=== PATIENT | female | born 1975 | race Caucasian/White ===

== ENCOUNTER 2016-09-22 18:01 | Inpatient (IN) | payer BC ==
[~2016-09-22] VITALS: Ht 167.6 cm; Wt 83.5 kg
[~2016-09-22 18:01] MED LIST: MULT-506 PO
[2016-09-22] MEDS ORDERED: PENICILLIN G POTASSIUM IV 6 MU in DEXTROSE 5% 250ML 250 ML IV ONE (18:30)
[2016-09-22] MEDS ORDERED: LACTATED RINGER'S 1000ML 1,000 ML IV PRN (18:30)
[2016-09-22] MEDS ORDERED: LACTATED RINGER'S 1000ML 500 ML IV PRN (18:32)
[2016-09-22] MEDS ORDERED: OXYTOCIN 30 UNITS/500ML NSS IV PRN (18:45)
[2016-09-22 18:53] LABS: HEMATOCRIT 36.4 % (37-47); MEAN CELL VOLUME 88.8 fL (80-100); MEAN CORPUSCULAR HEMOGLOBIN 33.2 pg (25-34); MEAN CORPUSCULAR HGB CONC 37.4 g/dl (32-36); PLATELET COUNT 174 K/uL (130-400); WHITE BLOOD COUNT 12.07 K/uL (4.8-10.8)
[2016-09-22] MEDS: LACTATED RINGER'S 1000ML 1,000 ML IV SCH (19:06)
[2016-09-22] MEDS ORDERED: LEVO112T2 PO (19:26)
[2016-09-22] MEDS ORDERED: CHOL1000 PO (19:26)
[2016-09-22] MEDS ORDERED: CHOL2000 PO (19:26)
[2016-09-22] MEDS ORDERED: CHOL20007 PO (19:26)
[2016-09-22] MEDS ORDERED: LEVO25TA PO (19:26)
[2016-09-22 19:28] VITALS: Ht 167.6 cm; Wt 83.5 kg
[2016-09-22] MEDS ORDERED: OMEG12006 (19:28)
[2016-09-22] MEDS: PENICILLIN G POTASSIUM IV 3 MU in DEXTROSE 5% 100ML 100 ML IV PRN (22:55)
--- NOTE | 2016-09-22 23:38 | HISTORY & PHYSICAL EXAMINATION ---
DATE OF ADMISSION: 09/22/2016 CHIEF COMPLAINT: Prolonged rupture of membranes and failed home delivery. HISTORY OF PRESENT ILLNESS: The patient is a 41-year-old 2, para 1, at 40 weeks and 1 day gestation, who was brought in to labor and delivery by her call center assistant. The patient states that she ruptured at 1:00 a.m. on the morning of 09/22/2016 with clear amniotic fluid. She has been irregularly edgar throughout the day. She is GBS positive and therefore is one of the reasons she presented to labor and delivery, for antibiotics and also for labor augmentation with Pitocin. On arrival, she was found to be 1 cm, 40% effaced and -2 station. Her care has been uncomplicated. She has a history of a prior section in 2014, secondary to intolerance to labor. She made it to 5 cm at the time of her delivery. The baby weighed 7 pounds 14 ounces. She is requesting a trial of labor after section. She understands the risks and benefits of a . PAST MEDICAL HISTORY: Hypothyroidism. Her first was through IVF; this was natural. PAST SURGICAL HISTORY: She had one section in 2014. She had appendectomy and a tonsillectomy. MEDICATIONS: vitamins, Synthroid 137 mcg daily, probiotics and vitamin D. SOCIAL HISTORY: She denies tobacco, alcohol or drug use. ALLERGIES: No known drug allergies. LABS: Blood type is O positive, group B strep positive, rubella immune, hepatitis B surface antigen negative, RPR nonreactive. PHYSICAL EXAMINATION: VITAL SIGNS: Blood pressure is 139/82, heart rate of 93, respiration rate of 20, temperature of 98.2. GENERAL: The patient is awake, alert, oriented x3. She is in no acute distress. HEART: With regular rate and rhythm. LUNGS: Clear to auscultation bilaterally. ABDOMEN: Gravid uterus, appropriate for gestational age. Bowel sounds present x4. Estimated weight 7-8 pounds. EXTREMITIES: No clubbing, cyanosis or calf tenderness. VAGINAL EXAM: She is 1 cm, 40% effaced, -2 station, posterior. heart tones are category 1. ASSESSMENT AND PLAN: A 41-year-old 2, para 1, at 40 weeks and 1 day gestation, will be admitted to labor and delivery for labor augmentation, secondary to failed home delivery. She is GBS positive. Will begin penicillin for GBS prophylaxis and oxytocin per protocol. She understands the risks and benefits of a trial of labor after a section. She may have her epidural upon request. OLAMIDE
[2016-09-22] MEDS ORDERED: FENTANYL 2MCG/ML ROPIV 1.25MG/ML 100ML BAG EPI ONE (23:46)
[2016-09-22] MEDS ORDERED: BUPIVACAINE 0.25% 30 ML VIAL ONE (23:46)
[2016-09-22] MEDS ORDERED: EpHEDrine SULFATE INJ 50 MG/ML AMP ONE (23:46)
[2016-09-22] MEDS ORDERED: FENTANYL CITRATE INJ 50 MCG/1 ML 2 ML VIAL ONE (23:47)
[2016-09-23] MEDS ORDERED: NALOXONE HCL INJ 1 MG in SODIUM CHLORIDE 0.9% 1000ML 1,000 ML IV PRN ×4 (00:40)
[2016-09-23] MEDS ORDERED: LACTATED RINGER'S 1000ML 500 ML IV PRN (00:40)
[2016-09-23] MEDS ORDERED: DiphenhydrAMINE HCL 50 MG/ML VIAL IV PRN (00:45)
[2016-09-23] MEDS ORDERED: ONDANSETRON INJ 2 MG/ML 2 ML VIAL IV PRN (00:45)
[2016-09-23] MEDS ORDERED: NALBUPHINE HCL INJ 10 MG/ML AMP IV PRN (00:45)
[2016-09-23] MEDS ORDERED: EpHEDrine SULFATE INJ 50 MG/ML AMP IV PRN (00:45)
[2016-09-23] MEDS ORDERED: NALOXONE HCL INJ 0.4 MG/1 ML VIAL/CARP IV PRN (00:45)
[2016-09-23] MEDS ORDERED: PROMETHAZINE HCL INJ 25 MG in SODIUM CHLORIDE 0.9% 50ML 50 ML IV PRN (00:45)
[2016-09-23] MEDS: PENICILLIN G POTASSIUM IV 3 MU in DEXTROSE 5% 100ML 100 ML IV PRN ×2 (02:44→06:59)
[2016-09-23] MEDS: LACTATED RINGER'S 1000ML 1,000 ML IV SCH (05:56)
[2016-09-23] MEDS: FENTANYL 2MCG/ML ROPIV 1.25MG/ML 100ML BAG EPI PRN ×2 (06:59→08:37)
[2016-09-23] MEDS ORDERED: METHYLERGONOVINE MALEATE 0.2 MG/ML AMP ONE (11:26)
[2016-09-23] MEDS ORDERED: OXYCODONE/ACETAMINOPHEN 5-325 TAB PO PRN (11:45)
[2016-09-23] MEDS ORDERED: HYDROCORTISONE ACETATE 25 MG SUPP PR PRN (11:45)
[2016-09-23] MEDS ORDERED: METHYLERGONOVINE MALEATE 0.2 MG/ML AMP IM ONE (11:45)
[2016-09-23] MEDS ORDERED: SUPERCREAM 0.870 % 15GM JAR EXT PRN (11:45)
[2016-09-23] MEDS ORDERED: BENZOCAINE 20% AER SPR 82.5 GM CAN EXT PRN (11:45)
[2016-09-23] MEDS ORDERED: ACETAMINOPHEN 325 MG TAB PO PRN (11:45)
[2016-09-23] MEDS ORDERED: ACETAMINOPHEN/CODEINE 300/30MG TAB PO PRN ×2 (11:45)
[2016-09-23] MEDS ORDERED: LANOLIN OINT EXT PRN ×2 (11:45)
[2016-09-23] MEDS ORDERED: OXYTOCIN 30 UNITS/500ML NSS IV PRN (11:45)
--- NOTE | 2016-09-23 11:58 | Anesthesia Procedure Note ---
Anesthesia Epidural Removal Nt Date & Time Sep 23, 2016 at 11:58 Vital Signs Pain Intensity: 0.0 Notes Mental Status: alert / awake / arousable, participated in evaluation Nausea / Vomiting: adequately controlled Pain: adequately controlled Airway Patency, RR, SpO2: stable & adequate BP & HR: stable & adequate Hydration State: stable & adequate Neuraxial Anesthesia: was administered Anesthetic Complications: no major complications apparent, pt satisfied with anesthetic care Epidural: removed without complications, with tip intact
[2016-09-23] MEDS: IBUPROFEN 600 MG TAB PO PRN ×2 (12:09→18:30)
--- NOTE | 2016-09-23 13:27 | DELIVERY SUMMARY ---
DATE OF OPERATION: 09/23/2016 DELIVERY NOTE The patient delivered a live male in occiput anterior presentation. was delivered and placed on mother's abdomen. Delayed cord clamp was performed. Weight is pending, Apgars 8 and 9. Placenta was spontaneously delivered. Inspection of the placenta shows a 3-vessel cord. The patient wishes to take placenta home. Estimated blood loss is 500 mL. Inspection of the perineum showed a second-degree midline laceration which was repaired in layers with 2-0 Vicryl. Rectal exam post repair showed good sphincter tone and no sutures palpated in the rectum. All instruments were removed from the vagina and accounted for x2 including sponges, needles and retractors. Baby and mother are doing well in recovery. I attest to the content of the Intraoperative Record and any orders documented therein. Any exception s are noted below.
[2016-09-23 14:00] VITALS: BP 122/81; PULSE 82; TEMP 36.7; O2SAT 98
[2016-09-23 19:45] VITALS: BP 115/74; PULSE 75; TEMP 36.3; O2SAT 99
[2016-09-23] MEDS: DOCUSATE SODIUM 100 MG CAP PO SCH (19:48)
[2016-09-23 23:30] VITALS: BP 112/67; PULSE 75; TEMP 36.7; O2SAT 98
[2016-09-24] MEDS: IBUPROFEN 600 MG TAB PO PRN ×4 (00:58→18:08)
[2016-09-24 04:20] VITALS: BP 111/58; PULSE 74; TEMP 36.5; O2SAT 96
[2016-09-24 07:35] VITALS: BP 123/79; PULSE 66; TEMP 36.4; O2SAT 99
[2016-09-24] MEDS: LEVOTHYROXINE 137 MCG TAB PO SCH (07:41)
[2016-09-24] MEDS: FERROUS SULFATE 325 MG TAB PO SCH (08:28)
[2016-09-24] MEDS: DOCUSATE SODIUM 100 MG CAP PO SCH ×2 (08:29→19:51)
[2016-09-24] MEDS: PRENATAL VITAMIN TAB PO SCH (08:29)
--- NOTE | 2016-09-24 10:23 | OB/GYN Progress Note ---
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 Patient is seen and examined. She feels well, no complaints other than soreness and hemorrhoids Ambulating without dizziness Voiding without difficulty Tolerating regular diet with out N&V Bleeding is minimal No fever/ chills/ CP/ SOB/ N&V/ Leg pain Breast feeding without problems Date Time Temp Pulse Resp B/P (MAP) Pulse Ox O2 Delivery O2 Flow Rate FiO2 09/24/16 07:40 Room Air 09/24/16 07:35 36.4 66 16 123/79 (94) 99 Room Air 09/24/16 04:20 36.5 74 16 111/58 (75) 96 Room Air 09/23/16 23:30 Room Air 09/23/16 23:30 36.7 75 18 112/67 (82) 98 Room Air 09/23/16 19:45 36.3 75 18 115/74 (88) 99 Room Air 09/23/16 14:00 98 Room Air 09/23/16 14:00 36.7 82 18 122/81 (95) 98 Room Air Test 09/22/16 18:45 White Blood Count 12.07 H Red Blood Count 4.10 L Hemoglobin 13.6 Hematocrit 36.4 L Mean Corpuscular Volume 88.8 Mean Corpuscular Hemoglobin 33.2 Mean Corpuscular Hemoglobin Concent 37.4 H RDW Standard Deviation 47.2 H RDW Coefficient of Variation 14.6 H Platelet Count 174 Mean Platelet Volume 13.0 H PE: General: Alert, orientedx3, NAD Abd: soft, NT, fundus firm, below Umbilicus Perineum intact, Lochia rubra minimal Ext hemorrhoids+, no signs of thrombosis Ext; NT, no edema AP: 41 yo s/p / , ppd# 1 VSS Afebrile doing well Continue routine care All questions were answered Discussed hemorrhoids and how to take care D/C home tomorrow
[2016-09-24 17:00] VITALS: BP 137/79; PULSE 76; TEMP 36.7
[2016-09-24] MEDS ORDERED: BISACODYL 5 MG TABEC PO SCH (20:00)
[2016-09-24 23:25] VITALS: BP 137/77; PULSE 83; TEMP 36.8; O2SAT 99
[2016-09-25] MEDS ORDERED: BISACODYL 10 MG SUPP PR PRN (07:00)
[2016-09-25] MEDS: LEVOTHYROXINE 137 MCG TAB PO SCH (07:26)
[2016-09-25 08:15] VITALS: BP 120/70; PULSE 74; TEMP 36.7; O2SAT 100
[2016-09-25] MEDS ORDERED: MTR600X PO (08:31)
--- NOTE | 2016-09-25 08:32 | Discharge Instructions ---
Discharge Instructions Date of Service Sep 25, 2016. Admission Reason for Admission: Failed Home , Ruptured Membranes Discharge Discharge Diagnosis / Problem: Vaginal after section Discharge Goals Goal(s): Routine recovery after delivery Medications Continue Dispensed Medications: supercream, dermaplast, tucks, lansinoh Activity Recommendations Activity Limitations: per Instructions/Follow-up section . Instructions / Follow-Up Instructions / Follow-Up ACTIVITY RECOMMENDATIONS: * Gradual return to full activity over the next 2-3 weeks. * No lifting - nothing heavier than baby over the next 2-3 weeks. * Do not engage in vigorous exercise, sexual activity or sports until cleared by your physician. * Do not drive or operate any motorized equipment until cleared by your physician. * You may shower/bathe daily. BREAST CARE: If you are not breast feeding: * Wear a supportive bra 24 hours a day for one to two weeks. * Avoid stimulating your breasts and nipples as much as possible during the first few weeks after delivery. * When taking a shower, have the warm water hit your back, not breasts. * When your breasts feel full, apply ice packs. Usually three to four times a day helps ease the discomfort. * Take a mild pain medication (Tylenol/Motrin) when you are uncomfortable. If breast feeding: * Use breast milk to lubricate nipples. Lansinoh cream may be used for sore nipples. You do not need to remove cream prior to breast feeding. If using a different brand of cream, check the label for directions regarding removal of cream prior to nursing. * Wear a supportive bra. * If having problems with breasts or breast feeding, call a new vehicle sales consultant or your health care provider. EPISIOTOMY CARE: After delivery, if you have an episiotomy (stitches), the following steps will ease discomfort and aid healing. * For the first 24 hours after delivery, place ice packs next to your episiotomy to help reduce swelling. * After the first 24 hour-period, sitz baths, either portable or in the tub, are suggested. A shower with a shower arm sprayed over the episiotomy may be comforting. * Josi care should be done after each voiding and bowel movement. Squirt warm water from a plastic bottle over the perineum (region of the body between the anus and urinary opening) and pat dry. * Use Dermoplast to ease discomfort. Shake container. [place] directly over the episiotomy. * Place a Tucks on a clean sanitary pad next to your episiotomy. OVER THE COUNTER MEDICATION: * For discomfort or pain, you may use Acetaminophen (Tylenol), Ibuprofen (Advil ), or Naproxen (Aleve) following the package directions. * For constipation you may use Colace following the package directions. SPECIAL CARE INSTRUCTIONS: When you are discharged from the hospital, it is important for you to follow the instructions listed below: * During the first week at home, you should be able to care for yourself and your baby. In addition, the usual light household activities are encouraged. * Limit your activities to the way you feel. Do not try to clean the house or move furniture. Be sensible. * If you actively engage in sports and have done so up until the time of your delivery, you may resume these activities as soon as you feel able. This may take up to one month or even longer. Use good judgment. * Continue to take your vitamins for at least six weeks after the of your baby. * Your diet need not be limited unless you were on a special diet before your delivery. Breast-feeding mothers need around 2500 calories per day and at least 64-80 ounces of fluid per day (8 to 10 glasses). * You should eat foods from the four major food groups. Crash diets or fad diets are to be avoided. Eating lean meats, fresh fruits and vegetables, low-fat dairy products, high fiber foods and a regular exercise program, will help you get back to your pre- weight without putting your health at risk. * Constipation is sometimes a problem after delivery. Take a mild laxative as needed. If breast feeding, Milk of Magnesia is acceptable to use. You may use a suppository or Fleets enema if no episiotomy. * A daily shower or tub bath is suggested. Be sure to thoroughly and gently dry the perineum. * A bloody vaginal discharge will usually continue until around four weeks post . A small amount of bleeding may continue for as long as six weeks. Vaginal discharge changes from the bright red bleeding after delivery to pink then brownish and finally yellowish-pink before becoming white and disappearing. * Bleeding may increase with activity. Your first period may come in 4-8 weeks. If you are breast feeding, your period may be delayed even longer. * [place] (sex) can begin whenever both you and your partner feel comfortable and do not have any form of genital infection. It is recommended that you wait until after your return appointment and discuss with your physician. If you have questions, please talk to your health care practitioner. A condom should be used to prevent infection and . * Foreplay, gentle intercourse and lubrication is very important the first several times to prevent pain. A water-based lubricant such as K-Y jelly or Astroglide may be used. * Tampons may be used six weeks after delivery. * Douching should be avoided for 6 weeks after delivery. * If you have RH negative blood and your baby is RH positive, you will receive RHOGAM by injection prior to discharge. The nurse will give you a card to keep with you that has the date and place that you received RHOGAM after delivery. * During your care, you had a Rubella screen done to check for the presence of rubella antibodies in your blood. If your test was negative, you will receive a Rubella vaccine prior to discharge. This vaccine may cause a fever, soreness at the injection site and flu-like symptoms. If these symptoms persist, notify your health care practitioner. is not advised for three months after a Rubella vaccine. There is a higher chance of having a baby with defects if conceived within three months of getting the vaccine. * If you were discharged 24 hours from delivery or before 48 hours: Visiting nurses will come to your home 48 hours after discharge to assess you and your baby. The visiting nurse will meet with you while you are in the hospital to arrange a time and get directions to your home. * Verbalizes understanding of car seat law as reviewed with patient nursing. * Car Seat hand-out given and reviewed with patient by nursing. * Shaken baby information reviewed with patient by nursing. Call you doctor if: * Heavy bleeding (saturating several pads an hour) or passing clots the size of your fist. * A fever >101 degrees F (38.3 degrees C) on two occasions four hours apart and/or chills. * Unusual pain in the pelvic or vaginal areas. * "Baby Blues" lasting longer than two weeks. If you have any questions or concerns, call your health care practitioner at . FOLLOW-UP VISIT: * Please call the office at to schedule a 6 week examination. It is important you keep this appointment. * It is important for you to make arrangements for either yearly or twice yearly check-ups thereafter. Current Hospital Diet Patient's current hospital diet: Regular OB Diet Discharge Diet Recommended Diet: Regular OB Diet Pending Studies Studies pending at discharge: no Medical Emergencies . Who to Call and When: Medical Emergencies: If at any time you feel your situation is an emergency, please call 911 immediately. . Non-Emergent Contact Non-Emergency issues call your: Primary Care Provider, Public Health Aides Teacher . . "Provider Documentation" section prepared by Rush Mccarthy. . VTE Core Measure Inpt VTE Proph given/why not?: Treatment not indicated
--- NOTE | 2016-09-25 08:34 | OB/GYN Progress Note ---
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 Subjective conversation w/ patient, physical exam Ambulation: ambulating normally Voiding: no voiding problems Passing Gas: Yes Diet Tolerance: Regular Diet Lochia: Moderate Feeding Type: Breast Feeding Pain: 4/10 Notes: Doing well, no concerns. Tolerating regular diet. Ambulating without difficulty. Lochia decreasing. Objective Vital Signs Date Time Temp Pulse Resp B/P (MAP) Pulse Ox O2 Delivery O2 Flow Rate FiO2 09/24/16 23:25 Room Air 09/24/16 23:25 36.8 83 18 137/77 (97) 99 Room Air 09/24/16 17:00 36.7 76 20 137/79 (98) Room Air 09/24/16 17:00 Room Air Physical Exam General Appearance: WELL-APPEARING Respiratory/Chest: chest non-tender, lungs clear Cardiovascular: regular rate, rhythm Abdomen: normal bowel sounds, soft Fundus: Firm Extremities: normal range of motion, non-tender, no calf tenderness Assessment and Plan Post- Day Number: 2 Continue Routine Care: -D/C home today -F/U in 6 weeks.
[2016-09-25] MEDS: PRENATAL VITAMIN TAB PO SCH (08:50)
[2016-09-25] MEDS: FERROUS SULFATE 325 MG TAB PO SCH (08:50)
[2016-09-25] MEDS: DOCUSATE SODIUM 100 MG CAP PO SCH ×2 (08:50→19:58)
[2016-09-25] MEDS: IBUPROFEN 600 MG TAB PO PRN ×2 (10:22→15:54)
[2016-09-25 16:05] VITALS: BP 136/78; PULSE 79; TEMP 36.8; O2SAT 99
[2016-09-25 21:56] VITALS: BP_DIAS 78; PULSE 79; TEMP 36.8
== END 2016-09-25 22:00 | disposition home or self-care (01) | DRG 775 ==
LOC: C.LD 18:01 → C.OBG 09-23 13:52
PROVIDERS: ADMIT Obstetrics & Gynecology; ATTEND Obstetrics & Gynecology
PROC: 0KQM0ZZ Repair Perineum Muscle, Open Approach (ICD-10-PCS; principal; 2016-09-23)
PROC: 10E0XZZ Delivery of Products of Conception, External Approach (ICD-10-PCS; principal; 2016-09-23)
DX: O42.12 Full-term premature rupture of membranes, onset of labor more than 24 hours following rupture (principal); Z37.0 Single live birth; O48.0 Post-term pregnancy; O99.824 Streptococcus B carrier state complicating childbirth; O34.219 Maternal care for unspecified type scar from previous cesarean delivery; O70.1 Second degree perineal laceration during delivery; O99.02 Anemia complicating childbirth; O99.214 Obesity complicating childbirth; E66.9 Obesity, unspecified; O99.52 Diseases of the respiratory system complicating childbirth; J45.909 Unspecified asthma, uncomplicated; O99.284 Endocrine, nutritional and metabolic diseases complicating childbirth; E03.9 Hypothyroidism, unspecified; Z68.29 Body mass index [BMI] 29.0-29.9, adult; Z3A.40 40 weeks gestation of pregnancy